=== PATIENT | male | born 2005 | race Asian ===

== ENCOUNTER 2024-01-19 23:46 | Emergency (ER) | payer OTHER ==
[2024-01-20] MEDS ORDERED: IBUPROFEN 600 MG TABLET (FP) PO ONE (00:23)
[2024-01-20] MEDS: IBUPROFEN 600 MG TABLET (FP) PO ONE (00:28)
[2024-01-20 00:44] VITALS: BP 124/79; PULSE 88; RESP 16; TEMP 98.1; BMI 20.3
== END 2024-01-20 00:46 | disposition home or self-care (01) ==
LOC: FER 23:46
DX: S30.0XXA Contusion of lower back and pelvis, initial encounter (principal); M54.41 Lumbago with sciatica, right side; W00.0XXA Fall on same level due to ice and snow, initial encounter
CPT/HCPCS: 99283-25